=== PATIENT | male | born 1965 | race Caucasian/White ===

== ENCOUNTER → 2016-06-19 | Day surgery (SDC) | payer BC ==
[~2016-06-19] MED LIST: BUPIVACAINE/EPINEPHRINE 0.25% 50 ML VIAL ONE; KETOROLAC TROMETHAMINE 30 MG/ML (IVP) VIAL IV PUSH ONE; LACTATED RINGER'S 1000 ML INJ 1,000 ML ONE; MEPERIDINE HCL 25 MG/ML VIAL ONE; MIDAZOLAM HCL 2 MG/2 ML VIAL ONE; ONDANSETRON HCL 4 MG/2 ML VIAL IV PUSH ONE; PROPOFOL 200 MG/20 ML AMP IV ONE; ceFAZolin 2 GM PREMIX 50 ML ONE; oxyCODONE/ACETAMINOPHEN 5 MG/325 MG TAB ONE
--- NOTE | 2016-06-19 15:45 | TN ---
cc: JAVAN STRATTON M.D. DATE OF SURGERY: 06/19/2016 PREOPERATIVE DIAGNOSIS Umbilical hernia. POSTOPERATIVE DIAGNOSIS Umbilical hernia. PROCEDURE Open repair umbilical hernia with mesh. SURGEON Dr. Javan Stratton ORNAMENTAL IRONWORKER HELPER ABRAHAM Mederos ANESTHESIA General. INDICATIONS A very pleasant 51-year-old gentleman who has an umbilical hernia. He wants to get it fixed before it gets bigger. INTRAOPERATIVE FINDINGS An approximately 1 to 1.5 cm umbilical hernia defect, approximated primarily and covered with mesh. ESTIMATED BLOOD LOSS Minimal. This procedure was assisted by my SCHOOL SECRETARY. The skill set of a nurse practitioner was medically necessary to provide appropriate visualization and efficiency to the completion of the surgery. During the surgical procedure the assembler surgical garment was at the back table providing appropriate instrumentation while the nurse practitioner was directly assisting me. DESCRIPTION OF PROCEDURE IN DETAIL The patient was identified as Raad Wade, taken to the operating room and placed in the supine position. Sequential compression devices were placed on bilateral lower extremities. Following induction of adequate general anesthesia, the patient's abdomen was prepped and draped in the usual sterile fashion with Betadine. A timeout procedure was performed. Following completion of the timeout procedure to everyone's satisfaction within the room, a proposed supraumbilical transverse incision was carried out with a scalpel after infiltration of local anesthetic. Electrocautery was used for hemostasis. The umbilical skin was lifted off the herniated fatty tissue and the umbilical hernia defect was isolated at the fascial level. Herniated preperitoneal fatty tissue was reduced for the defect. The anterior fascia was circumferentially cleared with electrocautery. Defects were primarily approximated without tension using interrupted inverted 0 Prolene sutures. An approximate 3 x 3 inch piece of ProLite mesh was cut from a 3 x 6 inch piece placed in the onlay position and held in position making the mesh taut in eight places with 0 Ethibond sutures. Irrigation ensued. There was no evidence of bleeding. The umbilicus was reformed with 2-0 Vicryl. 2-0 Vicryl was placed in the deep dermis. The skin was approximated with running 4-0 Monocryl subcuticular suture. Dressings were applied with Mastisol, half-inch brown Steri-Strips, gauze and a Tegaderm. The patient tolerated the procedure without apparent complication. Sponge, needle and instrument counts were correct at the end of the case. MD ALEX Singer/ALLYN /2:02 PM /3:38 PM
== END | disposition home or self-care (01) ==
LOC: ESDC 11:38
PROVIDERS: ATTEND Surgery Trauma Surgery
DX: K42.9 Umbilical hernia without obstruction or gangrene (principal)
CPT/HCPCS: 00750; 49585; C1781; J0690; J1885; J2175; J2250; J2405; J3010; J7120